=== PATIENT | female | born 1990 | race Caucasian/White ===

== ENCOUNTER → 2016-11-25 | Outpatient (REF) | payer OTHER | LOC: M LAB REF 12:48 | PROVIDERS: ATTEND Advanced Practice Midwife | DX: Z34.81 Encounter for supervision of other normal pregnancy, first trimester (principal) ==

== ENCOUNTER → 2016-11-28 | Outpatient (CLI) | payer OTHER ==
--- NOTE | 2016-11-29 05:09 | REP ---
Clinical: Dating and viability. Technique: Transabdominal first trimester obstetrical ultrasound with color Doppler evaluation A Findings: Single live early intrauterine is appreciated. Gestational sac with pole identified. [place]-rump length of 6.6 cm corresponds to 13 weeks 0 days gestational age with estimated date of delivery 06/05/2017 . heart rate equals 150 beats per minute. No gross abnormalities are identified. Impression: Single live early intrauterine at 13 weeks 0 days gestational age. Complete anatomical assessment should be performed and 19-20 weeks. Signed by Gagan Quinones MD 11/29/2016 05:01 A
== END ==
LOC: EDUNIT# 13:00 → M SMT 13:02
PROVIDERS: ATTEND Advanced Practice Midwife
DX: Z36 Encounter for antenatal screening of mother (principal); Z3A.13 13 weeks gestation of pregnancy

== ENCOUNTER → 2016-12-22 | Outpatient (CLI) | payer OTHER | LOC: M SMT 10:35 | PROVIDERS: ATTEND Obstetrics & Gynecology | DX: Z31.438 Encounter for other genetic testing of female for procreative management (principal) ==

== ENCOUNTER → 2017-01-11 | Outpatient (CLI) | payer OTHER ==
--- NOTE | 2017-01-11 10:27 | REP ---
Clinical: Anatomical evaluation. Comparison: 11/28/2016 . Findings: Examination demonstrates a single live intrauterine in cephalic presentation. motion is identified by technologist. Placenta is noted posteriorly and grade zero without evidence for placenta previa or abruption. Amniotic fluid volume is normal. Cervix measures 4.7 cm in length and appears closed. No evidence for nuchal cord. Gestational age by LMP 19 weeks 1 day with ELISA 06/06/2017 . Gestational age by current measurements 18 weeks 6 days with ELISA 06/08/2017 . FHR equals 153 beats per minute. BPD 4.3 cm 19 weeks 1 day HC 16.2 cm 19 weeks 0 days AC 13.5 cm 19 weeks 0 days FL 3.0 cm 19 weeks 1 day HL 3.0 cm 19 weeks 5 day HC/AC ratio 1.20 Estimated weight 270 grams (45th percentile). Anatomical assessment demonstrates normal structures including cranium, choroid plexus, cavum, cerebellum/posterior fossa, facial features, lungs, four-chamber heart/ventricular outflow tracts, diaphragm, stomach, cord insertion/three-vessel cord, kidneys/bladder, spine, and extremities. Impression: Single live intrauterine in cephalic presentation demonstrating appropriate interval growth. Anatomical assessment is complete and normal. Signed by Gagan Quinones MD 01/11/2017 10:19 A
== END ==
LOC: M SMT 08:48
PROVIDERS: ATTEND Obstetrics & Gynecology
DX: Z36 Encounter for antenatal screening of mother (principal); Z3A.19 19 weeks gestation of pregnancy

== ENCOUNTER → 2017-03-03 | Outpatient (CLI) | payer OTHER ==
[2017-03-03 14:25] LABS: BASO % 0.4 % (0.0-1.0); EOS # 0.1 10^3/uL (0.0-0.50); EOS % 1.3 % (0.0-3.0); IMMATURE GRANULOCYTE % 0.5 % (0-0); LYMPH % 25.1 % (24.0-44.0); MEAN CORPUSCULAR HEMOGLOBIN 31.6 pg (27.0-33.0); MEAN CORPUSCULAR VOLUME 95.8 fl (80.0-96.0); MONO # 0.4 10^3/uL (0.0-0.8); MONO % 4.9 % (0.0-5.0); NEUTROPHILS # 5.4 10^3/uL (1.8-7.7); NEUTROPHILS % 67.8 % (36.0-66.0); PLATELET COUNT, AUTOMATED 185 10^3/uL (150-450); RED CELL DISTRIBUTION WIDTH 12.9 % (11.5-14.5)
== END ==
LOC: M SMT 09:04
PROVIDERS: ATTEND Specialist
DX: Z36.89 Encounter for other specified antenatal screening (principal); Z3A.00 Weeks of gestation of pregnancy not specified

== ENCOUNTER → 2017-05-15 | Outpatient (REF) | payer OTHER | LOC: M LAB REF 13:14 | DX: Z34.83 Encounter for supervision of other normal pregnancy, third trimester (principal) ==

== ENCOUNTER 2017-06-11 19:47 | Inpatient (IN) | payer OTHER ==
[2017-06-11] MEDS ORDERED: LR 1,000 ML IV (20:18)
[2017-06-11] MEDS: LACTATED RINGER'S 1000 ML IV (20:18)
[2017-06-11] MEDS ORDERED: FENTANYL 2MCG/ML ROPIVACAINE 0.2% IN 0.9% NACL 200ML IVBAG As Ordered (20:31)
[2017-06-11 20:36] LABS: HEMATOCRIT 37.8 % (36.0-47.0); HEMOGLOBIN 12.7 g/dl (12.0-16.0); MEAN CORPUSCULAR HEMOGLOBIN 29.5 pg (27.0-33.0); MEAN CORPUSCULAR HGB CONC 33.6 g/dl (32.0-36.5); MEAN CORPUSCULAR VOLUME 87.7 fl (80.0-96.0); PLATELET COUNT, AUTOMATED 175 10^3/uL (150-450); RED BLOOD COUNT 4.31 10^6/uL (4.00-5.40); RED CELL DISTRIBUTION WIDTH 13.3 % (11.5-14.5); WHITE BLOOD COUNT 14.3 10^3/uL (4.0-10.0)
[2017-06-11 21:17] LABS: AMPHETAMINES URINE REFLEX NEGATIVE (NEGATIVE); BARBITURATES URINE REFLEX NEGATIVE (NEGATIVE); BENZODIAZEPINES URINE REFLEX NEGATIVE (NEGATIVE); CANNABINOIDS URINE REFLEX NEGATIVE (NEGATIVE); COCAINE METABOLITE URINE REFLE NEGATIVE (NEGATIVE); METHADONE URINE REFLEX NEGATIVE (NEGATIVE); OPIATES URINE REFLEX NEGATIVE (NEGATIVE); PHENCYCLIDINE URINE REFLEX NEGATIVE (NEGATIVE)
[2017-06-11] MEDS ORDERED: diphenhydrAMINE INJ 50MG/ML VIAL (J1200) IV (21:41)
[2017-06-11] MEDS ORDERED: EPIDURAL/PCA KEYS XX (21:41)
[2017-06-11] MEDS ORDERED: REFRIGERATOR IV KEYS XX (21:41)
[2017-06-11] MEDS: FENTANYL/ROPIVACAINE/NACL BAG 200 ML EPIDURAL (21:41)
[2017-06-11] MEDS ORDERED: ONDANSETRON 4MG/2ML VIAL (J2405) IV ×2 (21:41→23:15)
[2017-06-11] MEDS ORDERED: NALOXONE INJ 0.4 MG/1 ML VIAL (J2310) IV (21:41)
[2017-06-11] MEDS ORDERED: EPIDURAL COMMENT XX (21:41)
[2017-06-11] MEDS ORDERED: LACTATED RINGER'S 1000 ML IV (21:41)
[2017-06-11] MEDS ORDERED: ePHEDrine INJ 50 MG/ML VIAL IV (21:41)
[2017-06-11] MEDS ORDERED: OXYTOCIN 30 UNITS IN 0.9% NaCl 500ML IV BAG (J2590) As Ordered (22:03)
[2017-06-11] MEDS: OXYTOCIN DRIP 30 UNITS in APPROPRIATE DILUENT 1 EA IV (23:08)
[2017-06-11] MEDS: LIDOCAINE 1% MDV INJ 50 ML VIAL INFIL (23:08)
[2017-06-11] MEDS ORDERED: MEASLES,MUMPS,RUBELLA VACCINE INJ (MMR-II) (90707) SC (23:15)
[2017-06-11] MEDS ORDERED: ACETAMINOPHEN 500 MG TAB PO (23:15)
[2017-06-11] MEDS ORDERED: DOCUSATE SODIUM 100 MG CAP PO (23:15)
[2017-06-11] MEDS ORDERED: RHOGAM 300 MCG (1500 IU) INJ (J2790) IM (23:15)
[2017-06-11] MEDS ORDERED: METHYLERGONOVINE MALEATE 0.2 MG TAB PO (23:15)
[2017-06-12] MEDS ORDERED: LABETALOL HCL 100 MG/20 ML VIAL IV (01:00)
[2017-06-12] MEDS: ONDANSETRON 4 MG ORAL DISINTEGRATING TAB (S0181) PO (01:17)
[2017-06-12 03:45] LABS: HBSAG L&D NEGATIVE (NEGATIVE)
[2017-06-12] MEDS: IBUPROFEN 800 MG TAB PO ×2 (05:50→15:01)
[2017-06-12] MEDS: DIBUCAINE 1% OINTMENT 30GM TOP (05:51)
[2017-06-12] MEDS: PRENATAL VITAMINS CHEWABLE TABLET PO (09:00)
[2017-06-13] MEDS: IBUPROFEN 800 MG TAB PO (02:33)
[2017-06-13] MEDS: PRENATAL VITAMINS CHEWABLE TABLET PO (07:37)
== END 2017-06-13 09:45 | disposition home or self-care (01) | DRG 775 ==
LOC: M LDO 19:47 → M OBS 06-12 00:44 → M LDI 20:17
PROVIDERS: Specialist
PROC: 10E0XZZ Delivery of Products of Conception, External Approach (ICD-10-PCS; principal; 2017-06-11)
PROC: 0KQM0ZZ Repair Perineum Muscle, Open Approach (ICD-10-PCS; 2017-06-11)
DX: O48.0 Post-term pregnancy (principal); Z3A.40 40 weeks gestation of pregnancy; O70.1 Second degree perineal laceration during delivery; O69.1XX0 Labor and delivery complicated by cord around neck, with compression, not applicable or unspecified; Z37.0 Single live birth

== ENCOUNTER → 2017-08-11 | Outpatient (REF) | payer OTHER | LOC: M LAB REF 12:56 | DX: Z01.419 Encounter for gynecological examination (general) (routine) without abnormal findings (principal); R30.0 Dysuria | CPT/HCPCS: 87086 ==

== ENCOUNTER → 2017-11-29 | Outpatient (REF) | payer OTHER | LOC: M LAB REF 16:55 | DX: N76.0 Acute vaginitis (principal) ==

== ENCOUNTER → 2018-03-27 | Outpatient (CLI) | payer OTHER ==
[2018-03-27 18:14] LABS: BASO # 0.1 10^3/uL (0.0-0.2); BASO % 0.9 % (0.0-1.0); EOS # 0.2 10^3/uL (0.0-0.50); HEMATOCRIT 45.5 % (36.0-47.0); HEMOGLOBIN 14.9 g/dl (12.0-15.5); IMMATURE GRANULOCYTE % 0.1 % (0-3.0); LYMPH # 3.4 10^3/uL (1.5-6.5); LYMPH % 43.3 % (24.0-44.0); MEAN CORPUSCULAR HEMOGLOBIN 29.9 pg (27.0-33.0); MEAN CORPUSCULAR HGB CONC 32.7 g/dl (32.0-36.5); MEAN CORPUSCULAR VOLUME 91.4 fl (80.0-96.0); MONO # 0.5 10^3/uL (0.0-0.8); MONO % 6.4 % (0.0-5.0); NEUTROPHILS # 3.7 10^3/uL (1.8-7.7); NEUTROPHILS % 47.3 % (36.0-66.0); PLATELET COUNT, AUTOMATED 230 10^3/uL (150-450); RED BLOOD COUNT 4.98 10^6/uL (4.00-5.40); RED CELL DISTRIBUTION WIDTH 12.5 % (11.5-14.5); WHITE BLOOD COUNT 7.8 10^3/uL (4.0-10.0)
[2018-03-27 18:40] LABS: ALBUMIN/GLOBULIN RATIO 0.98 (1.00-1.93); ALKALINE PHOSPHATASE 80 U/L (45-117); ALT/SGPT 30 U/L (12-78); ANION GAP 8 MEQ/L (8-16); AST/SGOT 20 U/L (7-37); BILIRUBIN,TOTAL 0.3 MG/DL (0.2-1.0); BLOOD UREA NITROGEN 17 MG/DL (7-18); CALCIUM LEVEL 9.2 MG/DL (8.5-10.1); CARBON DIOXIDE LEVEL 29 MEQ/L (21-32); CHLORIDE LEVEL 102 MEQ/L (98-107); FREE T4 0.89 NG/DL (0.76-1.46); GLOMERULAR FILTRATION RATE > 60.0 (>60); GLUCOSE, FASTING 96 MG/DL (70-100); POTASSIUM SERUM 4.5 MEQ/L (3.5-5.1); SODIUM LEVEL 139 MEQ/L (136-145); TOTAL PROTEIN 8.1 GM/DL (6.4-8.2)
== END ==
LOC: M SMT 15:30
DX: Z13.0 Encounter for screening for diseases of the blood and blood-forming organs and certain disorders involving the immune mechanism (principal); Z13.29 Encounter for screening for other suspected endocrine disorder
CPT/HCPCS: 84443